=== PATIENT | male | born 1965 | race African-American/Black ===

== ENCOUNTER 2023-11-22 22:22 | Emergency (ER) | payer SELFPAY ==
[~2023-11-22] VITALS: Ht 190.5 cm; Wt 85.0 kg
[2023-11-22 22:32] VITALS: TEMP 98.8; O2SAT 100
[2023-11-22] MEDS ORDERED: KETOROLAC 60MG/2ML VIAL IM ONE (22:45)
[2023-11-22] MEDS: TRAMADOL 50MG TABLET PO ONE (22:45)
[2023-11-22] MEDS ORDERED: KETOROLAC 60MG/2ML VIAL IM NR (23:45)
[2023-11-22] MEDS ORDERED: IBUP-2030 MT (23:46)
[2023-11-22] MEDS ORDERED: TRAM50TA3 MT (23:48)
[2023-11-23] MEDS: KETOROLAC 30MG/ML VIAL IM NR (00:48)
[2023-11-23 01:27] VITALS: BP 138/72; PULSE 88; RESP 12
== END 2023-11-23 01:00 | disposition home or self-care (01) ==
LOC: ER 22:22
DX: S16.1XXA Strain of muscle, fascia and tendon at neck level, initial encounter (principal); S29.012A Strain of muscle and tendon of back wall of thorax, initial encounter; X58.XXXA Exposure to other specified factors, initial encounter; Y93.89 Activity, other specified; Y92.89 Other specified places as the place of occurrence of the external cause; Y99.8 Other external cause status
CPT/HCPCS: 99283; 72040; 96372; J1885